=== PATIENT | male | born 1995 | race Caucasian/White ===

== ENCOUNTER 2018-10-22 10:35 | Emergency (ER) | payer BC ==
[~2018-10-22] VITALS: Ht 180.3 cm; Wt 74.1 kg
[2018-10-22 10:43] VITALS: TEMP 98.3
[2018-10-22 13:10] LABS: BASO % 0.3 % (0.0-2.0); EOS # 0.1 (0.0-0.7); EOS % 1.1 % (0-4.0); GRAN # 4.7 (1.4-6.5); HEMATOCRIT 43.6 % (42.0-52.0); HEMOGLOBIN 15.5 g/dl (13.5-18.0); LYMPH # 0.8 (1.2-3.4); LYMPH % 12.5 % (20.0-51.0); MEAN CELL VOLUME 83 fl (80.0-100.0); MEAN CORPUSCULAR HEMOGLOBIN 30 pg (27.0-31.0); MEAN CORPUSCULAR HGB CONC 36 g/dl (33.0-37.0); MEAN PLATELET VOLUME 9.4 fl (7.4-10.4); MONO # 0.6 (0.1-0.6); MONO % 9.8 % (1.7-9.3); PLATELET COUNT 164 K/mm3 (130-400); RED BLOOD COUNT 5.23 M/mm3 (4.20-5.60); REDCELL DISTRIBUTION WIDTH-CV 11.6 % (11.5-14.5)
[2018-10-22 13:20] LABS: ALBUMIN 4.3 gm/dL (3.5-5.0); BILIRUBIN,TOTAL 0.6 mg/dL (0.0-1.0); CALCIUM 9.3 mg/dL (8.4-10.2); CREATININE, serum 1.01 mg/dL (0.66-1.25); POTASSIUM 4.3 mmol/L (3.4-5.0); TOTAL PROTEIN 7.4 gm/dL (6.4-8.2)
[2018-10-22] MEDS ORDERED: ANUSOL-HC SUPPO25 MG RC (13:50)
[2018-10-22 14:04] VITALS: BP 136/95; PULSE 92
== END 2018-10-22 14:05 | disposition home or self-care (01) ==
LOC: COL.ER 10:35
PROVIDERS: Physician Assistant
DX: K64.8 Other hemorrhoids (principal); K60.2 Anal fissure, unspecified
CPT/HCPCS: J1885